=== PATIENT | male | born 1970 | race African-American/Black ===

== ENCOUNTER 2016-05-20 09:34 | Emergency (ER) | payer OTHER ==
[~2016-05-20] VITALS: Ht 180.3 cm; Wt 100.3 kg
[~2016-05-20 09:34] MED LIST: AMITRIPTYLINE H10 MG PO; LISINOPRIL20 MG PO; UNABLE TO RECALL
[2016-05-20] MEDS ORDERED: BACTRIM,SEPT1 TABLET PO (10:01)
[2016-05-20 10:53] VITALS: BP 152/87
== END 2016-05-20 10:54 | disposition home or self-care (01) ==
LOC: EME 09:34
DX: L03.114 Cellulitis of left upper limb (principal); L03.317 Cellulitis of buttock; F17.200 Nicotine dependence, unspecified, uncomplicated; I10 Essential (primary) hypertension
CPT/HCPCS: 99281; 99283

== ENCOUNTER 2016-05-23 07:26 | Emergency (ER) | payer OTHER ==
[~2016-05-23] VITALS: Ht 180.3 cm; Wt 99.2 kg
[~2016-05-23 07:26] MED LIST changes: +BACTRIM,SEPT1 TABLET PO
[2016-05-23] MEDS ORDERED: NORCO 5/3251 TABLET PO (10:28)
[2016-05-23] MEDS ORDERED: DOXYCYCLINE HY100 MG PO (10:28)
[2016-05-23 11:10] VITALS: BP 151/100
== END 2016-05-23 11:30 | disposition home or self-care (01) ==
LOC: EME 07:26
PROC: 0H98XZZ Drainage of Buttock Skin, External Approach (ICD-10-PCS; principal; 2016-05-23)
DX: L02.414 Cutaneous abscess of left upper limb (principal); L03.114 Cellulitis of left upper limb; L02.31 Cutaneous abscess of buttock; I10 Essential (primary) hypertension; F17.200 Nicotine dependence, unspecified, uncomplicated
CPT/HCPCS: 99281; 99285; J7050

== ENCOUNTER 2016-11-14 19:27 | Observation (INO) | payer OTHER ==
[~2016-11-14] VITALS: Ht 180.3 cm; Wt 98.0 kg
[~2016-11-14 19:27] MED LIST changes: +DOXYCYCLINE HY100 MG PO; +NORCO 5/3251 TABLET PO
[2016-11-14 20:16] LABS: HEMATOCRIT 38.2 % (38.0-50.0); MCH 25.9 PG (29.0-34.0); MCHC 32.5 G/DL (30.0-36.0); MCV 79.9 FL (86-99); MEAN PLAT.VOLUME 10.2 uM^3 (9.0-12.4); PLATELET COUNT 212 K/uL (156-360); RBC DIS.WIDTH-CV 13.5 % (11.8-14.6); RBC DIS.WIDTH-SD 39.3 % (39-53); RED BLOOD COUNT 4.78 M/uL (4.00-5.50); WHITE BLOOD COUNT 10.4 K/uL (4.1-10.2)
[2016-11-14 20:45] LABS: ANION GAP 7 MEQ/L (2-14); CHLORIDE 106 MEQ/L (99-109); POTASSIUM 3.4 MEQ/L (3.7-5.4); SAMPLE HEMOLYSIS CHECK 0; SAMPLE ICTERIC CHECK 0; SAMPLE LIPEMIA CHECK 0; SODIUM 140 MEQ/L (136-147)
[2016-11-14 20:53] LABS: TROP-I INTERPRETATION NEGATIVE; TROPONIN-I 0.05 ng/mL (0.0-0.30)
[2016-11-14 21:04] LABS: GFR ESTIMATE (CALCULATED) > 59 mL/min/; GLUCOSE 103 mg/dL (70-99); UREA NITROGEN (BUN) 12 mg/dL (9-23)
[2016-11-14 22:59] LABS: DIRECT BILIRUBIN 0.1 mg/dL (0.0-0.3); TOTAL BILIRUBIN 0.4 MG/DL (0.0-1.0)
[2016-11-14 23:04] LABS: ALKALINE PHOSPHATASE 47 IU/L (3-129); LIPASE 6 U/L (1.0-51.0)
[2016-11-14 23:22] LABS: TOTAL BILIRUBIN 0.5 mg/dL (0.0-1.0)
[2016-11-14 23:23] LABS: ALKALINE PHOSPHATASE 51 IU/L (3-129)
[2016-11-14 23:25] LABS: DIRECT BILIRUBIN 0.2 mg/dL (0.0-0.3)
[2016-11-14 23:26] LABS: LIPASE 9 U/L (1.0-51.0)
[2016-11-14 23:29] LABS: TROP-I INTERPRETATION NEGATIVE; TROPONIN-I 0.01 ng/mL (0.0-0.30)
[2016-11-15 00:37] LABS: D-DIMER ELISA < 150.00 ng/mLDDU (<230)
[2016-11-15 01:33] VITALS: BP 122/79
[2016-11-15 03:05] LABS: TROP-I INTERPRETATION NEGATIVE; TROPONIN-I < 0.01 ng/mL (0.0-0.30)
[2016-11-15 03:36] VITALS: BP 112/71
[2016-11-15 08:26] VITALS: BP 120/63
[2016-11-15 08:54] LABS: HDL CHOLESTEROL 29 MG/DL (Desirable>=40); LDL CHOLESTEROL 80 mg/dL (Desirable<100); NON-HDL CHOLESTEROL 114 mg/dL (Desirable<160); TOTAL CHOLESTEROL 143 mg/dL (Desirable<200); TRIGLYCERIDES 170 MG/DL (Normal: <150); TROP-I INTERPRETATION NEGATIVE; TROPONIN-I < 0.01 ng/mL (0.0-0.30)
[2016-11-15 08:55] LABS: ADD MIUA? NO; BILIRUBIN NEGATIVE; BLOOD NEGATIVE; COLOR YELLOW ((YELLOW)); GLUCOSE (STRIP) NEGATIVE; KETONES NEGATIVE; LEUKOCYTES NEGATIVE; NITRITE NEGATIVE; PROTEIN (STRIP) NEGATIVE; UCUL ADDED? NO; UROBILINOGEN 0.2 MG/DL (0.2-1.0)
[2016-11-15 09:20] LABS: AMPHETAMINES QUANT VALUE 0 NG/ML; BARBITUATES QUANT VALUE 0 NG/ML; BENZODIAZEPINES QUANT VALUE 0 NG/ML; BENZODIAZEPINES, URINE SCREEN Negative (200 ng/mL); OPIATES QUANTITATIVE VALUE 0 NG/ML; PHENCYCLIDINE QUANT VALUE 0 NG/ML
[2016-11-15 12:00] VITALS: BP 177/68
[2016-11-15 13:35] VITALS: BP 133/77
[2016-11-15] MEDS ORDERED: NICOTINE PATCH1 EAC1 TD (15:19)
== END 2016-11-15 16:05 | disposition home or self-care (01) ==
LOC: EME 19:27 → 5WEST 23:43 → EDOF 23:43 → ENRESERV 23:44 → 5WEST 11-15 01:22
PROVIDERS: Hospitalist; Physician Assistant; Physician Assistant Medical
DX: R07.9 Chest pain, unspecified (principal); R00.2 Palpitations; I10 Essential (primary) hypertension; E78.5 Hyperlipidemia, unspecified; F17.210 Nicotine dependence, cigarettes, uncomplicated; F15.20 Other stimulant dependence, uncomplicated; F12.90 Cannabis use, unspecified, uncomplicated; F41.9 Anxiety disorder, unspecified; Z86.19 Personal history of other infectious and parasitic diseases; Z82.3 Family history of stroke; Z82.49 Family history of ischemic heart disease and other diseases of the circulatory system; Z88.8 Allergy status to other drugs, medicaments and biological substances
CPT/HCPCS: 71020; 80048; 80061; 80076; 80306 90; 81003; 83690; 84443; 84484; 85027; 85379; 93005; 93306; G0378; J1650; J7030